=== PATIENT | female | born 1995 | race Caucasian/White ===

== ENCOUNTER 2017-01-02 22:25 | Emergency (ER) | payer MEDICAID ==
[~2017-01-02] VITALS: Ht 160 cm; Wt 58.0 kg
[~2017-01-02 22:25] MED LIST: GUAISOL PO; PROM25TA5 PO; ZITH250T PO
[2017-01-02 22:27] VITALS: BP 125/75; PULSE 85; RESP 18; TEMP 97.8; O2SAT 97
== END 2017-01-02 23:00 | disposition left against medical advice (07) ==
LOC: NED 22:25
DX: T14.90 Injury, unspecified (principal); Y09 Assault by unspecified means
CPT/HCPCS: 99281

== ENCOUNTER 2017-01-03 18:12 | Emergency (ER) | payer SELFPAY ==
[~2017-01-03] VITALS: Ht 160 cm; Wt 60.0 kg
[2017-01-03 18:13] VITALS: BP 136/88; PULSE 88; RESP 24; TEMP 98.1; O2SAT 99
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
[2017-01-03 19:18] LABS: AMPHETAMINE, URINE NEG (NEG); BARBITURATES, URINE NEG (NEG); COCAINE, URINE NEG (NEG)
[2017-01-03 19:18] LABS: BICARBONATE 22.4 MEQ/L (21.0-32.0); POTASSIUM 4.2 MEQ/L (3.5-5.1)
[2017-01-03] MEDS ORDERED: cefTRIAXone 250 MG VIAL IM ONE (19:30)
[2017-01-03] MEDS ORDERED: LIDOCAINE HCL 1% 50 ML VIAL XX ONE (19:30)
[2017-01-03] MEDS ORDERED: metroNIDAZOLE 500 MG TAB PO ONE (19:30)
[2017-01-03] MEDS ORDERED: AZITHROMYCIN 250 MG TAB PO ONE (19:30)
[2017-01-03 19:41] LABS: AUTOMATED NEUTROPHIL # 4.6 TH/MM3 (1.8-7.7); BASOPHIL # 0.1 TH/MM3 (0-0.2); BASOPHIL % 0.6 % (0.0-2.0); EOSINOPHIL % 0.3 % (0.0-4.0); HEMATOCRIT 40.5 % (35.0-46.0); HEMO FLAGS DIFF FINAL; LYMPH % 31.8 % (9.0-44.0); LYMPHOCYTE # 2.5 TH/MM3 (1.0-4.8); MEAN CELL VOLUME 84.3 FL (80.0-100.0); MEAN CORPUSCULAR HGB CONC 34.5 % (32.0-36.0); MONO % 8.6 % (0.0-8.0); NEUT % 58.7 % (16.0-70.0); PLATELET COUNT 248 TH/MM3 (150-450); RED BLOOD COUNT 4.81 MIL/MM3 (4.00-5.30); RED CELL DISTRIBUTION WIDTH 13.4 % (11.6-17.2); WHITE BLOOD COUNT 7.9 TH/MM3 (4.0-11.0)
[2017-01-03 20:55] VITALS: BP 132/76; PULSE 104; RESP 19; O2SAT 100
[2017-01-03 22:00] VITALS: BP 110/84; PULSE 92; RESP 17; O2SAT 98
[2017-01-03] MEDS ORDERED: ONDANSETRON ODT 4 MG TAB PO ONE (22:15)
[2017-01-04 02:00] VITALS: BP 105/55; PULSE 101; RESP 18; O2SAT 98
[2017-01-04] MEDS ORDERED: DIPHENOXYLATE/ATROPINE 2.5 MG/0.025 MG TAB PO ONE (02:45)
[2017-01-04 06:36] VITALS: BP 117/60; PULSE 104; RESP 17; O2SAT 99
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
== END 2017-01-04 14:19 | disposition home or self-care (01) ==
LOC: NEPD 18:12 → NEPJ 01-04 14:19
DX: R45.851 Suicidal ideations (principal); Z04.41 Encounter for examination and observation following alleged adult rape
CPT/HCPCS: 80048; 80307; 84703; 85025; 96372; 99284; J0696